=== PATIENT | female | born 1965 ===

== ENCOUNTER 2021-11-27 02:21 | Emergency (ER) | payer OTHER ==
[~2021-11-27] VITALS: Ht 162.6 cm; Wt 83.9 kg
[2021-11-27] MEDS ORDERED: NORFLEX100MG PO (06:18)
[2021-11-27] MEDS ORDERED: KETO10TA2 PO (06:18)
== END 2021-11-27 06:52 | disposition home or self-care (01) ==
LOC: ER 02:21
DX: S99.812A Other specified injuries of left ankle, initial encounter (principal); S89.82XA Other specified injuries of left lower leg, initial encounter; S89.81XA Other specified injuries of right lower leg, initial encounter; W19.XXXA Unspecified fall, initial encounter; Y93.89 Activity, other specified; Y92.098 Other place in other non-institutional residence as the place of occurrence of the external cause; M25.572 Pain in left ankle and joints of left foot